=== PATIENT | female | born 1995 | race Caucasian/White ===

== ENCOUNTER 2017-03-01 06:03 | Day surgery (SDC) | payer OTHER ==
[2017-02-22 13:51] VITALS: BMI 21.7
[2017-03-01] MEDS ORDERED: SUCCINYLCHOLINE CHLORIDE 200 MG/10 ML VIAL ONE (07:09)
[2017-03-01] MEDS ORDERED: PROPOFOL 20 ML ONE (07:09)
[2017-03-01] MEDS ORDERED: MIDAZOLAM HCL 2 MG/2 ML SINGLE DOSE VIAL ONE (07:09)
[2017-03-01] MEDS ORDERED: LIDOCAINE HCL 2% (20ML MULTI-DOSE VIAL) NR ONE (07:11)
[2017-03-01] MEDS ORDERED: BUPIVACAINE HCL/PF 2.5 MG/ML - 30 ML VIAL IJ ONE (07:42)
[2017-03-01] MEDS ORDERED: ONDANSETRON 4 MG/2 ML VIAL ONE (08:53)
[2017-03-01] MEDS ORDERED: oxyCODONE HCL 5 MG TABLET PO PRN ×2 (09:23)
[2017-03-01] MEDS ORDERED: ONDANSETRON 4 MG/2 ML VIAL IVPUSH PRN (09:23)
[2017-03-01 09:28] VITALS: TEMP 98
[2017-03-01] MEDS ORDERED: LACTATED RINGERS SOLUTION 1,000 ML IV SCH (09:30)
[2017-03-01 10:32] VITALS: BP 108/66; PULSE 68
--- NOTE | 2017-03-02 09:31 | OP ---
DATE OF OPERATION: 03/01/2017 PREOPERATIVE DIAGNOSIS: Right wrist mass. POSTOPERATIVE DIAGNOSIS: Right wrist mass. OPERATIVE PROCEDURE: Right wrist mass excision. SURGEON: David Pierre MD ANESTHESIA: General. COMPLICATIONS: None. ESTIMATED BLOOD LOSS: Minimal. INDICATION FOR PROCEDURE: The patient is a 22-year-old female who presented for the above finding and was indicated for operative treatment at her request. Risks, benefits, and alternatives including the risk of recurrence were discussed with the patient at length, and proper informed consent was obtained. DESCRIPTION OF PROCEDURE: After proper identification of the patient and the correct operative site, patient was brought to the operating room and placed supine on the operating table. Prominences were well padded. General anesthesia was provided by the anesthesiologist adequate for the procedure. Right upper extremity was prepped and draped in the usual sterile fashion. A well-padded tourniquet was placed with a sterile prep. An Esmarch bandage was used to exsanguinate the right upper extremity. The tourniquet was inflated to 250 mmHg. A curvilinear incision was made over the volar aspect of the wrist in line with the scaphoid tubercle. The incision was taken sharply through the skin with blunt and sharp dissection through the subcutaneous tissues. Any passing branches of the radial artery and veins were cauterized. A small cystic structure was emanating from this area. It appeared to be coming from the scaphotrapezial joint, was excised in whole, and sent for pathological evaluation. The wound was irrigated with saline and repaired with a 5-0 nylon suture. Sterile dressings were applied. The patient was reversed from anesthesia and brought to recovery room in stable condition. She tolerated the procedure well. DAVID PIERRE M.D. [id number]
--- NOTE | 2017-03-02 16:31 | PATH ---
Surgical Pathology Report Patient Name: ROME BRENNER Med. Rec. #: [id number] /Age/Gender: 1995 (Age: 22) / F Account: [id number] Location: [facility] AMBULATORY Taken: 03/01/2017 Received: 03/01/2017 Reported: 03/02/2017 Physicians: David Salter M.D. Specimen(s) Received RIGHT WRIST GANGLION CYST Clinical History Ganglion cyst Final Diagnosis GANGLION CYST, RIGHT WRIST, EXCISION: GANGLION CYST. Electronically Signed Carin Mann M.D. Gross Description Received in formalin, labeled "right wrist ganglion cyst" is a 0.2 cm portion of jensen-white soft tissue. Entirely submitted one cassette.
== END 2017-03-01 10:30 | disposition home or self-care (01) ==
LOC: FASU 06:03
PROVIDERS: ATTEND Orthopaedic Surgery Hand Surgery
PROC: 0XBG0ZZ Excision of Right Wrist Region, Open Approach (ICD-10-PCS; principal; 2017-03-01 07:47)
DX: M67.431 Ganglion, right wrist (principal)
CPT/HCPCS: 84703; 88304-TC; 94760